=== PATIENT | female | born 1970 | race Caucasian/White ===

== ENCOUNTER 2022-06-10 05:30 | Day surgery (SDC) | payer OTHER, SELFPAY ==
[2022-06-10] VITALS (19 sets, daily range): BP systolic 83–135; BP diastolic 55–81; PULSE 71–110; RESP 16–18; TEMP 36.1–36.6; O2SAT 95–100; BMI 23.8
--- NOTE | 2022-06-10 06:08 | HP.PCM_ITS ---
[facility] - General General Date of Service: 06/10/22 Chief Complaint: Surveillance for intestinal cancer [facility] Narrative DANE ORTEZ, is a 51 F who presents today for screening colonoscopy. Previous examination was per myself October 21, 2016. She has a family history of both the mother and a maternal grandmother who had colon cancer. She presents via open access today. Over the past 5 years she denies abdominal pain or bright red blood per rectum or melena. She has finnegan enjoys good health. She does let us know for the first time that subsequent to her previous colonoscopy she did get nauseated on the drive home. [facility] Medical History (Updated 06/05/22 @ 12:25 by Gaby Geronimo) Excessive bleeding Family history of malignant neoplasm of digestive organs History of steroid therapy Hx of ectopic Wears glasses Home Medications rhubarb root extract 4 mg tablet (Estroven Complete Menopause Relief) 4 mg PO DAILY 06/05/22 [History Last Taken Unknown] Allergy/AdvReac Type Severity Reaction Status Date / Time No Known Allergies Allergy Verified 06/05/22 12:08 Family History (Updated 04/02/22 @ 14:41 by Jeannie Gill) Mother Colon cancer Grandmother Colon cancer Surgical History (Updated 06/05/22 @ 12:25 by Gaby Geronimo) History of colonoscopy Hx of surgical procedure Hx of tonsillectomy Social History Smoking Status: Never smoker ROS Constitutional Constitutional: Reports systems reviewed and no addt'l complaints, except as documented Cardiovascular Cardiovascular: Denies chest pain Respiratory/Chest Respiratory/Chest: Denies shortness of breath at rest Gastrointestinal Gastrointestinal: Denies abdominal pain, change in bowel habits, hematochezia or melena Physical Exam Const alert, oriented x3 and no apparent distress General Appearance: cooperative and comfortable Eyes General Eye: normal appearance of both eyes Neck General: normal visual inspection Chest inspection of chest normal Resp Effort and Inspection: able to speak in complete sentences and symmetric chest movement Auscultation: clear to auscultation bilaterally Cardio regular rate and regular rhythm GI soft to palpation, non-tender and non-distended Extremity no calf tenderness Neuro oriented x3 Psych thought process normal Assessment & Plan Assessment/Plan (1) Encounter for screening for malignant neoplasm of colon: PLAN: Plan to proceed with a screening colonoscopy with possible biopsy or polypectomy as indicated. She is aware of the technique, benefit, risk, alternatives. She has had an opportunity to ask and have questions answered. She presents via open access. We will proceed as noted. We will try to prophylax her previous problems with nausea and vomiting post procedure by giving IV Zofran initially and we may additionally utilize Phenergan as antiemetic and sedative throughout the procedure. Chevy Emery M.D., F.A.C.S.
[2022-06-10 06:24] LABS: Internal QC Validated? YES +Cl - CLEAR BKGD; Pregnancy, Urine Negative Negative
[2022-06-10] MEDS: Ondansetron 4 MG/2 ML Vial (06:29)
[2022-06-10] MEDS: Midazolam 5 MG/ML Syringe (06:31)
[2022-06-10] MEDS: Lactated Ringers 1,000 ML 15 ML IV ×2 (06:35→07:32)
--- NOTE | 2022-06-10 06:58 | OP.CCLET_ITS ---
06/10/2022 June Rodriguez Re : Colonoscopy procedure for Jackie Cespedes Jessicar Jennifer This procedure was performed on Friday, June 10, 2022. My impressions and recommendations are as follows: Impressions : - Hemorrhoids found on perianal exam. - Tortuous colon. - The examination was otherwise normal. - No specimens collected. Recommendations : - Discharge patient to home. - Resume previous diet. - Continue present medications. - Repeat colonoscopy in 5 years for surveillance. My findings are described in the full procedure note, which is enclosed. If I can be of further assistance, please feel free to contact me at Doctor phone number(s): Work: . Sincerely, Chevy Emery MD 06/10/2022 6:57:27 AM This report has been signed electronically.
--- NOTE | 2022-06-10 06:58 | OP.COLON_ITS ---
Patient Name: Jackie Cespedes Procedure Date: 06/10/2022 6:31 AM Date of : 1970 Age: 51 Procedure: Colonoscopy Indications: Family history of colon cancer in a first-degree relative Providers: Chevy Emery MD Referring MD: Chevy Emery MD Medicines: Midazolam 5 mg IV, Meperidine 100 mg IV, Promethazine 12.5 mg IV, Ondansetron 4 mg IV Patient Profile: Last Colonoscopy: October 2016. Complications: No immediate complications. Procedure: Pre-Anesthesia Assessment: - Prior to the procedure, a History and Physical was performed, and patient medications and allergies were reviewed. The patient's tolerance of previous anesthesia was also reviewed. The risks and benefits of the procedure and the sedation options and risks were discussed with the patient. All questions were answered, and informed consent was obtained. Prior Anticoagulants: The patient has taken no previous anticoagulant or antiplatelet agents. ASA Grade Assessment: II - A patient with mild systemic disease. After reviewing the risks and benefits, the patient was deemed in satisfactory condition to undergo the procedure. After I obtained informed consent, the scope was passed under direct vision. Throughout the procedure, the patient's blood pressure, pulse, and oxygen saturations were monitored continuously. The was introduced through the anus and advanced to the cecum, identified by appendiceal orifice and ileocecal valve. The colonoscopy was somewhat difficult due to a tortuous colon. Successful completion of the procedure was aided by increasing the dose of sedation medication. The patient tolerated the procedure well. The quality of the bowel preparation was good. The ileocecal valve and the appendiceal orifice were photographed. Moderate Sedation: Moderate (conscious) sedation was personally administered by the endoscopist. The following parameters were monitored: oxygen saturation, heart rate, blood pressure, and response to care. Total physician intraservice time was 15 minutes. Scope In: 6:34:38 AM Scope Withdrawal Time 0 hours 6 minutes 42 seconds Scope Out: 6:52:36 AM Total Procedure Duration Time 0 hours 17 minutes 58 seconds Findings: Hemorrhoids were found on perianal exam. The colon (entire examined portion) was moderately tortuous. Advancing the scope required using manual pressure. The exam was otherwise without abnormality. Impression: - Hemorrhoids found on perianal exam. - Tortuous colon. - The examination was otherwise normal. - No specimens collected. Recommendation: - Discharge patient to home. - Resume previous diet. - Continue present medications. - Repeat colonoscopy in 5 years for surveillance. Procedure Code(s): --- Professional --- 99603, Colonoscopy, flexible; diagnostic, including collection of specimen(s) by brushing or washing, when performed (separate procedure) 39127, 59, Moderate sedation services provided by the same physician or other qualified health before and after school daycare worker performing the diagnostic or therapeutic service that the sedation supports, requiring the presence of an independent trained observer to assist in the monitoring of the patient's level of consciousness and physiological status; initial 15 minutes of intraservice time, patient age 5 years or older Diagnosis Code(s): --- Professional --- K64.9, Unspecified hemorrhoids Z80.0, Family history of malignant neoplasm of digestive organs Q43.8, Other specified congenital malformations of intestine CPT copyright 2017 [employer]. All rights reserved. The codes documented in this report are preliminary and upon senior technical analyst review may be revised to meet current compliance requirements. Chevy Emery MD 06/10/2022 6:57:27 AM This report has been signed electronically. Number of Addenda: 0 Note Initiated On: 06/10/2022 6:31 AM
--- NOTE | 2022-06-10 08:25 | SUR.PHASEII ---
This nurse went into the room to check on patient. She was stating that she was having some dizziness. Her bp was 94/64 with a MAP of 75. She is a little below her 20% of her preop BP. I told her to hang out longer until she felt better, and I would be back in a half hour to recheck on her if she hasn't called out to say that she is ready to leave.
--- NOTE | 2022-06-10 08:33 | SUR.PHASEII ---
PATIENT JUST CALLED OUT AND SAID SHE IS FEELING BETTER AND IS READY TO BE DISCHARGED. PATIENT WAS WHEELED OUT TO HER CAR.
== END 2022-06-10 08:34 | disposition home or self-care (01) ==
LOC: EN 05:35 → AC 06:06
PROVIDERS: Anesthesiology; PCP Family Medicine; Referring Provider Family Medicine; Visit Provider Surgery
PROC: 0DJD8ZZ Inspection of Lower Intestinal Tract, Via Natural or Artificial Opening Endoscopic (ICD-10-PCS; CPT 45378; principal; 2022-06-10 06:25)
DX: Z12.11 Encounter for screening for malignant neoplasm of colon (principal); K64.9 Unspecified hemorrhoids; Q43.8 Other specified congenital malformations of intestine; Z80.0 Family history of malignant neoplasm of digestive organs
CPT/HCPCS: 45378; 81025; 99152; 99153; J7120; J2405